=== PATIENT | female | born 1965 | race Two or more races ===

== ENCOUNTER 2025-03-23 10:27 | Emergency (ER) | payer BC, SELFPAY ==
[2025-03-23 10:28] VITALS: BMI 32.8
[2025-03-23 10:33] VITALS: BP 138/90; PULSE 80; RESP 17; TEMP 36.7; O2SAT 96
--- NOTE | 2025-03-23 10:37 | EKG_ITS ---
[facility] Test Date: 2025-03-23 Pat Name: PASQUALE MEJIA Department: Room: - Gender: Female Communications Tech: : [id number] Requested By: Toby Solomon (PATTY) Order Number: [id number] Reading MD: Toby Solomon (PATTY) Measurements Intervals [place] Rate: 75 P: 46 WV: 156 QRS: 34 QRSD: 80 T: 44 QT: 385 QTc: 431 Interpretive Statements SINUS RHYTHM No previous ECG available for comparison /store/S0/[id number]/[id number].pdf
--- NOTE | 2025-03-23 10:37 | XR_ITS ---
Examination: CT brain head without contrast. 2-D sagittal coronal reconstructions Date and time of exam: March 23, 2025, 1128 hours, comparison June 03, 2022 INDICATIONS: Onset headaches dizziness today CTDI: vol (mGy): 52.7 DLP: (mGycm): 992 Technique: Multiple CT axial sections of the brain have been obtained, 5 mm slice thickness. Contrast has not been administered. 2-D sagittal, coronal reconstructions have been obtained Low dose protocols were performed. One or more of the following dose reduction techniques were used; automated exposure control, adjustment of the mA and/or KV according to patient size, use of iterative reconstruction technique. Findings: No significant ventricular enlargement. Intra-axial or extra-axial hemorrhage density is not seen. No mass effect or midline shift Basal cisterns are not remarkable. Fourth ventricle is midline. Cranial vault intact. Impression: Negative for acute hemorrhage, mass effect or midline shift Advise clinical correlation and follow-up accordingly
--- NOTE | 2025-03-23 10:39 | PD.EDRME ---
Rapid Medical Screening Exam RME Arrival date/time: 03/23/25 10:27 59-year-old female presents to the emergency department today for complaints of dizziness Chief Complaint: Dizziness Time Seen by Provider: 03/23/25 10:33 Vital signs: Vital Signs Temperature 98.0 F 03/23/25 10:33 Pulse Rate 80 03/23/25 10:33 Respiratory Rate 17 03/23/25 10:33 Blood Pressure 138/90 H 03/23/25 10:33 Pulse Oximetry (%) 96 03/23/25 10:33 Oxygen Delivery Method Room Air 03/23/25 10:33 Vital signs reviewed by provider: Yes Exam: On exam patient well-appearing does not appear ill or toxic no acute distress no acute neurological deficit noted Clinical Impression: Lab work and imaging ordered EKG ordered, patient ordered meclizine
[2025-03-23] MEDS: MECLIZINE HCL 25 MG TABLET 50 MG PO (10:41)
[2025-03-23 10:57] LABS: Basophils # (Auto) 0.0 Thou/mm3 (0.0-0.2); Basophils % (Auto) 0 % (0-2.5); Eosinophils # (Auto) 0.1 Thou/mm3 (0.0-0.5); Eosinophils % (Auto) 2 % (0-10); Hematocrit 44.1 % (36.0-46.0); Hemoglobin 14.8 g/dL (12.0-16.0); Immature Granulocytes Auto 0.01 Thou/mm3 (0.00-0.00); Lymphocytes # (Auto) 2.3 Thou/mm3 (1.0-4.8); Lymphocytes % (Auto) 36 % (10-50); Mean Corpuscular HGB Conc 33.6 g/dl (31.0-37.0); Mean Corpuscular Hemoglobin 30.3 pg (25.0-35.0); Mean Corpuscular Volume 90 fL (80-100); Monocytes # (Auto) 0.5 Thou/mm3 (0.0-0.8); Monocytes % (Auto) 7 % (0-12); Neutrophils # (Auto) 3.5 Thou/mm3 (1.8-7.7); Neutrophils % (Auto) 55 % (37-80); Nucleated Red Blood Cell # 0.00 Thou/mm3 (0.00-0.00); Nucleated Red Blood Cell % 0 /100 WBC (0); Platelet Count 241 Thou/mm3 (140-440); RDW Standard Deviation 45.6 fL (36.4-46.3); Red Blood Count 4.88 Miln/mm3 (4.00-5.20); White Blood Count 6.4 Thou/mm3 (3.6-11.0)
[2025-03-23 11:21] LABS: Alanine Aminotransferase 42 U/L (10-49); Albumin, Serum 4.5 gm/dL (3.5-5.0); Albumin/Globulin Ratio 1.6 (1.2-2.2); Alkaline Phosphatase 93 U/L (46-116); Anion Gap 7 (7-16); Aspartate Amino Transferase 29 U/L (0-34); BUN/Creatinine Ratio 13 Ratio (12-20); Bilirubin,Total 0.5 mg/dL (0.3-1.2); Blood Urea Nitrogen 10 mg/dL (9-23); Calcium 10.2 mg/dL (8.3-10.6); Calcium (Corrected) 10.2 mg/dL (8.5-10.1); Carbon Dioxide 26.5 mMol/L (20.0-31.0); Chloride 110 mMol/L (98-107); Creatinine (Component) 0.8 mg/dL (0.6-1.3); Estimated Creatinine Clearance 79.6 mL/min (>60); Globulin 2.9 gm/dL (2.3-3.5); Glucose 107 mg/dL (74-106); Osmolality,Calculated 283 (275-295); Potassium 4.4 mMol/L (3.4-5.1); Sodium 143 mMol/L (136-145); Total Protein 7.4 gm/dL (5.7-8.2); Troponin I < 0.002 ng/mL (0.0-0.045); eGFR > 60 See Note
[2025-03-23 14:11] VITALS: BP 129/89; PULSE 75; RESP 17; TEMP 36.8; O2SAT 95
--- NOTE | 2025-03-23 14:16 | PD.EDDIZZY ---
ED Dizzyness RME/HPI General Chief Complaint: Dizziness Stated Complaint: DIZZINESS SINCE 0200 WITH N/V; HX VERTIGO Time Seen by Provider: 03/23/25 10:33 Arrival date/time: 03/23/25 10:27 dizziness. Onset of symptoms since early this morning sudden onset of dizziness, severity moderate associated with nasal congestion, facial pain, has been ongoing for the last few days. Denies any sore throat denies any fever denies any upper or lower extremity weakness patient is ambulatory denies any head trauma or fall. No medication was taken prior to ER visit. RME / HPI RME / HPI Narrative: 03/23/25 10:27 59-year-old female presents to the emergency department today for complaints of dizziness Exam: On exam patient well-appearing does not appear ill or toxic no acute distress no acute neurological deficit noted Impression: Lab work and imaging ordered EKG ordered, patient ordered meclizine Related Data Home Medications ?Medication ?Instructions ?Recorded ?Confirmed alprazolam 0.25 mg tablet 0.25 mg PO BID 06/03/22 06/03/22 estradiol 1 mg tablet 1 mg PO QDAY 06/03/22 06/03/22 venlafaxine 150 mg 150 mg PO QDAY 06/03/22 06/03/22 capsule,extended release 24 hr Previous Rx's ?Medication ?Instructions ?Recorded amoxicillin 875 mg-potassium 1 tab PO BID #14 tabs 03/23/25 clavulanate 125 mg tablet fexofenadine 60 mg-pseudoephedrine 1 tab PO Q12H PRN nasal congestion 03/23/25 ER 120 mg tablet,ext.release,12 hr #20 tabs (Chelsea-D 12 Hour) Allergies Allergy/AdvReac Type Severity Reaction Status Date / Time No Known Allergies Allergy Verified 03/23/25 10:30 Review of Systems Review of Systems Narrative Review of Systems: Review of system reviewed and within normal limits except mentioned in HPI ED Exam Narrative Physical exam: VITAL SIGNS: Reviewed. GENERAL APPEARANCE: Alert and interactive, follows commands, no acute distress, HEAD AND FACE: Non-traumatic. Facial tenderness bilateral maxillary area with nasal congestion ENT: PERRL, pink conjunctivitis, eyelid no trauma, Mucous membrane moist. NECK: Supple, nontender, no nuchal rigidity. CHEST: No tenderness, no crepitus, no paradoxical movement, no retractions. LUNGS: Clear, well ventilated, symmetric, no rales, no wheezing, no ronchi, no stridor, good breath sounds bilaterally. HEART: Regular rate, regular rhythm, no murmur, no gallops. ABDOMEN: Soft, positive bowel sounds, nondistended, no guarding, nontender, no rebound, no masses, RECTAL: Deferred. GENITAL: Deferred. NEUROLOGICAL: Gross motor function intact sensory function intact, Appropriate for age. MUSCULOSKELETAL: low back nontender, full range of motion. EXTREMITIES: Nontender, full range of motion. SKIN: Color pink, dry, no rash, no lacerations, no abrasions, no contusions. LYMPHATICS: Deferred. Course Quality Measures none Orders Category Date Time Status EKG (ED ONLY) *Do not use* NOW Care 03/23/25 10:[address] head/brain wo con Stat Exams 03/23/25 10:37 Completed EKG (ED Only) Stat Exams 03/23/25 10:37 Ordered CBC Stat Lab 03/23/25 10:51 Completed Comprehensive Metabolic Panel Stat Lab 03/23/25 10:51 Completed Troponin I Stat Lab 03/23/25 10:51 Completed Meclizine HCl [Antivert] Med 03/23/25 10:37 Discontinued 50 mg PO X1 ONE Vital Signs Vital signs: Vital Signs Temperature 98.0 F 03/23/25 10:33 Pulse Rate 80 03/23/25 10:33 Respiratory Rate 17 03/23/25 10:33 Blood Pressure 138/90 H 03/23/25 10:33 Pulse Oximetry (%) 96 03/23/25 10:33 Oxygen Delivery Method Room Air 03/23/25 10:33 Dizziness MDM Narrative MDM Narrative:: 03/23/25 10:27 dizziness. Onset of symptoms since early this morning sudden onset of dizziness, severity moderate associated with nasal congestion, facial pain, has been ongoing for the last few days. Denies any sore throat denies any fever denies any upper or lower extremity weakness patient is ambulatory denies any head trauma or fall. No medication was taken prior to ER visit. Patient's workup all came back unremarkable including CT scan of the head. Patient was given meclizine which completely source of dizziness. Patient will be sent home on Augmentin and Chelsea-D for sinusitis also. Stable for discharge home. Patient data External records reviewed:: None Clinical information provided by:: patient Social determinants that could affect healthcare access:: none Patient has the following chronic illnesses:: None How is presenting disease/condition affected by chronic disease/condition?: no chronic disease Evaluation data The following diagnostics were reviewed and interpreted by me:: lab results and radiology exam(s) Lab and/or radiology exams considered but not ordered:: None Interpretation Summary: See results MDM Medications / Prescriptions Medications or Prescriptions considered but not ordered:: None Medication administrations:: Medication Administration History Discontinued Medications Meclizine HCl (Meclizine Hcl 25 Mg Tablet) 50 mg PO X1 ONE Stop: 03/23/25 10:38 Last Admin: 03/23/25 10:41 Dose: 50 mg Documented By: Meclizine Consultations Consultation(s) initiated? (list below): No Diagnosis Dizziness Differential Diagnosis: cerebrovascular accident and other (Dizziness, sinusitis) Most likely diagnosis given after review of the tests above:: Dizziness, sinusitis Admission Indicated Admission indicated?: not indicated Explain why admission is indicated or not indicated:: Stable Admission Request Was there a request for admission?: No Disposition Plan Disposition Plan: Discharge Discharge Attestation Discharge Attestation: The patient and all family members were given an opportunity to ask questions and understood the discharge instructions. Discharge instructions specifically effects, indications for sooner follow up or return to the emergency department, and the expected course of current diagnosis. Patient condition: Stable Discharge Plan Plan Patient Disposition: HOME (Self Care) Discharge Disposition comment: Stable Prescriptions/Referrals Prescriptions/Med Rec: New amoxicillin-pot clavulanate 875-125 mg tablet 1 tab PO BID Qty: 14 0RF fexofenadine-pseudoephedrine [Chelsea-D 12 Hour] 60-120 mg tablet extended release 12 hr 1 tab PO Q12H PRN (Reason: nasal congestion) Qty: 20 0RF No Action venlafaxine 150 mg capsule,extended release 24hr 150 mg PO QDAY Patient Comments: TAKE 1 CAPSULE BY MOUTH DAILY alprazolam 0.25 mg tablet 0.25 mg PO BID Patient Comments: TAKE 1 TABLET BY MOUTH TWICE DAILY FOR ANXIETY OR POOR SLEEP NEEDED estradiol 1 mg tablet 1 mg PO QDAY Patient Comments: TAKE 1 TABLET BY MOUTH DAILY Referrals: Haris Cannon MD [Primary Care Provider, Family Practice] - In 1 week Problem List Clinical Impression: Dizziness, Sinusitis Patient/Caregiver Discharge Instructions Discharge Activity: activity as tolerated Education Materials: Causes of Sinusitis Additional Instructions: Thank you for the opportunity for serving you today. You are stable for discharged . You are advised to: Follow-up with your PCP in 1 to 2 days Return to ED for worsening of symptoms Increase oral fluids Take medication as prescribed Print Language: [place] Island[place] Stand Alone Forms: Sasha Award Info., Patient Portal Info Letter PA/MEHREEN Supervising Physician ISAC/MEHREEN Supervising Physician: MD Dhruv
== END 2025-03-23 14:21 | disposition home or self-care (01) ==
PROVIDERS: Nurse Practitioner Primary Care; Emergency Provider Family Medicine; PCP Family Medicine
DX: J32.9 Chronic sinusitis, unspecified (principal)
CPT/HCPCS: 36415; 70450; 80053; 84484; 85025; 93005; 99283; A9270

== ENCOUNTER → 2025-04-25 | Outpatient (CLI) | payer BC, SELFPAY ==
--- NOTE | 2025-04-25 10:00 | XR_ITS ---
Examination: Screening digital mammography, bilateral Computer aided detection 3-D breast Tomosynthesis, bilateral Date and time of exam: April 25, 2025, 0945 hours, compared to mammograms dating to February 22, 2019 Indication: Screening Technique: Nonmagnified MLO, CC views of the breasts to been obtained, reconstructed from 3-D Tomosynthesis images. R2 computer aided detection program utilized for evaluation of suspicious masses and/or abnormal calcifications. 3-D Tomosynthesis images obtained. Findings: Scattered areas of fibroglandular density. Breast biopsy marker upper inner left breast 5 mm focal asymmetry, nodular outer right breast cc view, posterior depth, 8.4 cm from the nipple Impression: BI-RADS Category 0: Incomplete: Need additional imaging evaluation 5 mm nodular asymmetry outer right breast CC view, posterior depth, 8.4 cm from the nipple, recommend follow-up spot tomographic views upper outer right breast as well as right breast sonography complete .
== END | disposition home or self-care (01) ==
PROVIDERS: PCP Family Medicine; Referring Provider Family Medicine; Visit Provider Family Medicine
DX: Z12.31 Encounter for screening mammogram for malignant neoplasm of breast (principal); R92.8 Other abnormal and inconclusive findings on diagnostic imaging of breast; N64.89 Other specified disorders of breast
CPT/HCPCS: 77063; 77067